=== PATIENT | female | born 1980 ===

== ENCOUNTER → 2020-03-15 | Outpatient (CLI) | payer OTHER | LOC: MHCPAIN 12:51 | DX: M47.817 Spondylosis without myelopathy or radiculopathy, lumbosacral region (principal); M53.3 Sacrococcygeal disorders, not elsewhere classified; M54.16 Radiculopathy, lumbar region; G89.29 Other chronic pain | CPT/HCPCS: G0463 ==

== ENCOUNTER → 2020-04-14 | Outpatient (CLI) | payer OTHER | LOC: MHCPAIN 11:14 | DX: M47.817 Spondylosis without myelopathy or radiculopathy, lumbosacral region (principal); M54.5 Low back pain; M54.16 Radiculopathy, lumbar region | CPT/HCPCS: J1100; Q9967 ==

== ENCOUNTER → 2020-04-27 | Outpatient (CLI) | payer OTHER | LOC: MHCPAIN 13:09 | DX: M47.817 Spondylosis without myelopathy or radiculopathy, lumbosacral region (principal); M54.5 Low back pain; M53.3 Sacrococcygeal disorders, not elsewhere classified; G89.29 Other chronic pain | CPT/HCPCS: G0463 ==

== ENCOUNTER → 2020-05-23 | Outpatient (CLI) | payer OTHER, BC | LOC: MHCPAIN 05-09 13:19 | DX: M47.817 Spondylosis without myelopathy or radiculopathy, lumbosacral region (principal); M54.16 Radiculopathy, lumbar region | CPT/HCPCS: J1100; Q9967 ==

== ENCOUNTER → 2020-06-07 | Outpatient (CLI) | payer OTHER, BC | LOC: MHCPAIN 10:15 | DX: M47.817 Spondylosis without myelopathy or radiculopathy, lumbosacral region (principal); M54.5 Low back pain; M53.3 Sacrococcygeal disorders, not elsewhere classified; G89.29 Other chronic pain; M54.16 Radiculopathy, lumbar region | CPT/HCPCS: G0463 ==

== ENCOUNTER → 2021-06-07 | Outpatient (CLI) | payer MEDICAID | LOC: MHCPAIN 11:15 | DX: M47.816 Spondylosis without myelopathy or radiculopathy, lumbar region (principal); M54.16 Radiculopathy, lumbar region; M53.3 Sacrococcygeal disorders, not elsewhere classified | CPT/HCPCS: G0463 ==

== ENCOUNTER → 2021-06-29 | Outpatient (CLI) | payer MEDICAID | LOC: MHCPAIN 06-22 17:37 | DX: M47.817 Spondylosis without myelopathy or radiculopathy, lumbosacral region (principal); M54.16 Radiculopathy, lumbar region; M53.3 Sacrococcygeal disorders, not elsewhere classified | CPT/HCPCS: J1100; Q9967 ==

== ENCOUNTER 2023-09-24 09:41 | Outpatient (RCR) | payer MEDICAID | END 2023-10-06 | disposition home or self-care (01) | LOC: WSPT | DX: M51.26 Other intervertebral disc displacement, lumbar region (principal); M17.11 Unilateral primary osteoarthritis, right knee ==